=== PATIENT | male | born 1995 | race African-American/Black ===

== ENCOUNTER 2025-01-10 18:27 | Emergency (ER) | payer MEDICAID ==
[~2025-01-10] VITALS: Ht 167.6 cm; Wt 55.7 kg
[2025-01-10 18:41] VITALS: BP 109/66; PULSE 96; RESP 16; TEMP 36.8; O2SAT 97
[2025-01-10] MEDS: ACETAMINOPHEN 500MG TABLET PO ONE (22:30)
== END 2025-01-11 00:55 | disposition home or self-care (01) ==
LOC: ER 18:27
DX: R07.81 Pleurodynia (principal)
CPT/HCPCS: 71101; 72131; 99284